=== PATIENT | female | born 1995 | race Caucasian/White ===

== ENCOUNTER 2018-09-20 00:21 | Emergency (ER) | payer BC ==
[~2018-09-20] VITALS: Ht 170.2 cm; Wt 62.6 kg
[2018-09-20 00:26] VITALS: Ht 170.2 cm; Wt 62.6 kg
[2018-09-20 04:20] VITALS: BP 112/68
== END 2018-09-20 04:32 | disposition home or self-care (01) ==
LOC: ED 00:21
DX: T58.11XA Toxic effect of carbon monoxide from utility gas, accidental (unintentional), initial encounter (principal); Z88.2 Allergy status to sulfonamides; Y92.89 Other specified places as the place of occurrence of the external cause; F32.9 Major depressive disorder, single episode, unspecified; F90.9 Attention-deficit hyperactivity disorder, unspecified type
CPT/HCPCS: 36600; Q0092